=== PATIENT | male | born 1985 | race Caucasian/White ===

== ENCOUNTER 2018-12-07 17:13 | Observation (INO) ==
--- NOTE | 2018-12-07 18:12 | XR ---
EXAM DATE: 12/07/2018 6:04 PM EST AGE/SEX: 33 years / Male INDICATIONS: Chest pain. CLINICAL DATA: This is the patient's initial encounter. Patient reports that signs and symptoms have been present for 1 day and indicates a pain score of 10/10. MEDICAL/SURGICAL HISTORY: None. None. COMPARISON: [facility] [place], CHEST SINGLE AP, 04/09/2018. . FINDINGS: A single AP view of the chest demonstrates the lungs to be symmetrically aerated without evidence of mass, infiltrate or effusion. The cardiomediastinal contours are unremarkable. Osseous structures a re intact. CONCLUSION: The lungs are clear. Electronically signed by: Constantino Reich MD Board Certified Radiologist 12/07/2018 6:11 PM EST
[2018-12-07 18:28] LABS: Baso % (Auto) 0.4 % (0.0-2.0); Eos % (Auto) 0.5 % (0.0-4.0); Hematocrit 44.1 % (39.0-51.0); Hemoglobin 14.8 gm/dL (13.0-17.0); Lymph # (Auto) 1.6 th/mm3 (1.0-4.8); Lymph % (Auto) 17.8 % (9.0-44.0); Mean Corpuscular HGB Conc 33.5 % (32.0-36.0); Mean Corpuscular Hemoglobin 28.8 pg (27.0-34.0); Mean Corpuscular Volume 86.1 fL (80.0-100.0); Mean Platelet Volume 8.6 fL (7.0-11.0); Mono # (Auto) 0.9 th/mm3 (0.0-0.9); Mono % (Auto) 10.1 % (0.0-8.0); Neut # (Auto) 6.3 th/mm3 (1.8-7.7); Neut % (Auto) 71.2 % (16.0-70.0); Platelet Count 208 th/mm3 (150-450); Red Blood Count 5.13 mil/mm3 (4.50-5.90); Red Cell Distribution Width 15.3 % (11.6-17.2); White Blood Count 8.9 th/mm3 (4.0-11.0)
[2018-12-07 18:40] LABS: Albumin 3.8 g/dL (3.4-5.0); Anion Gap 7 meq/L (5-15); Aspartate Aminotransferase 54 U/L (15-37); Blood Urea Nitrogen 12 mg/dL (7-18); Calcium 9.1 mg/dL (8.5-10.1); Carbon Dioxide 26.2 meq/L (21.0-32.0); Chloride 104 meq/L (98-107); Glomerular Filtration Rate Greater Than 89 mL/min (>89); Glucose,Random 97 mg/dL (74-106); Sodium 137 meq/L (136-145)
[2018-12-07 18:43] LABS: Alanine Aminotransferase 74 U/L (12-78); Alkaline Phosphatase 120 U/L (45-117); Total Protein 8.7 g/dL (6.4-8.2)
[2018-12-07 18:48] LABS: Potassium 4.3 meq/L (3.5-5.1)
--- NOTE | 2018-12-07 19:37 | ED ---
HPI General Chief complaint: Chest Pain Stated complaint: med clearance/DBPD Time Seen by Provider: 12/07/18 17:50 Source: patient and police Mode of arrival: ambulatory Limitations: no limitations History of Present Illness HPI narrative: 33yo M with history IVDA was brought in by police for evaluation of chest pain. Pt said he has been having sharp, midsternal chest pain for a few days. Associated with some sob and tactile fever. Also complains of left arm weakness and numbness that started 3 days ago but said has improved but still does not feel that same. Denies any n/v, abdominal pain. Related Data Home Medications Medication Instructions Recorded Confirmed No Known Home Medications 12/07/18 12/07/18 Allergies Allergy/AdvReac Type Severity Reaction Status Date / Time No Known Allergies Allergy Verified 12/07/18 17:47 Review of Systems ROS: all other systems reviewed are negative [facility] Medical History Medical History Patient denies medical problems (Acute) Surgical History Surgical History H/O hernia repair (Acute) Family History Family History Other Family history non-contributory Social History Social History Substance History: Active Abuse Second Hand Smoke Exposure: Yes Smoking Status: Current every day smoker Tobacco Type: Cigarettes How Often Do You Have a Drink Containing Alcohol: Never Hx Recent Travel: No Recent Travel in [facility] within the Last 8 Weeks: No Recent Out of Country Travel within the Last 8 Weeks: No Immunization History Tetanus Immunization: Unsure Exam Narrative Exam Narrative: GENERAL: 33yo M in moderate distress. SKIN: Multiple scars from IVDA in bilateral hands. HEAD: Atraumatic. Normocephalic. EYES: Pupils equal and round. No scleral icterus. No injection or drainage. ENT: No nasal bleeding or discharge. Mucous membranes pink and moist. NECK: Trachea midline. No JVD. CARDIOVASCULAR: HR is tachycardic in the 115-117. No murmur appreciated. RESPIRATORY: No accessory muscle use. Clear to auscultation. Breath sounds equal bilaterally. GASTROINTESTINAL: Abdomen soft, non-tender, nondistended. MUSCULOSKELETAL: No obvious deformities. No clubbing. No cyanosis. No edema. NEUROLOGICAL: Awake and alert. No obvious cranial nerve deficits. Motor grossly within normal limits in all extremities. Decreased sensation in left arm. Normal speech. PSYCHIATRIC: Appropriate mood and affect; insight and judgment normal. Course Initial Documented Vital Signs Temperature 98.2 F 12/07/18 17:44 Pulse Rate 101 H 12/07/18 17:44 Respiratory Rate 20 12/07/18 17:44 Blood Pressure 159/83 H 12/07/18 17:44 Pulse Oximetry 100 12/07/18 17:44 Last Documented Vital Signs Temperature 97.6 F 12/08/18 15:33 Pulse Rate 90 12/08/18 15:33 Respiratory Rate 18 12/08/18 15:33 Blood Pressure 135/81 12/08/18 15:33 Pulse Oximetry 100 12/08/18 15:33 Medical Decision Making MDM Narrative Medical decision making narrative: 33yo M with IVDA here with chest pain and left arm numbness and weakness. Pt still feels like his left arm is more numb compare to his right arm but it has been 3 days. Will still obtain CT brain. Pt is tachycardic in the 115s-117 on monitor and is high risk for endocarditis because of his IVDA. CTA chest ordered to r/o PE and septic emboli. Pt will need to be admitted for endocarditis work up as well as neurology evaluation of his left arm weakness and numbness. Patient was evaluated/reassessed by myself via the RMA process Lab work is unremarkable. Patient's troponin and CK are negative. CT of the chest with angio shows multiple pulmonary nodules that patient needs to have repeat imaging on in 6 months. Patient is an IV drug abuser and will need rule out endocarditis. Patient will be admitted for observation and for a echocardiogram in the morning. Patient is admitted to Dr. Hathaway Medical Screen Exam Complete: Yes Emergency Medical Condition: Yes Differential Diagnosis Differential Diagnosis: Endocarditis vs. septic emboli vs. TIA vs. ACS vs. GERD vs. PE vs. malingering Lab Data Lab results reviewed: Yes I reviewed the patient's lab results. Result diagrams: 12/08/18 08:17 12/08/18 08:17 Lab Results 12/07/18 12/07/18 12/07/18 Range/Units 17:50 17:50 20:20 WBC 8.9 (4.0-11.0) th/mm3 RBC 5.13 (4.50-5.90) mil/mm3 Hgb 14.8 (13.0-17.0) gm/dL Hct 44.1 (39.0-51.0) % MCV 86.1 (80.0-100.0) fL MCH 28.8 (27.0-34.0) pg MCHC 33.5 (32.0-36.0) % RDW 15.3 (11.6-17.2) % Plt Count 208 (150-450) th/mm3 MPV 8.6 (7.0-11.0) fL Neut % (Auto) 71.2 H (16.0-70.0) % Lymph % (Auto) 17.8 (9.0-44.0) % [place] % (Auto) 10.1 H (0.0-8.0) % Eos % (Auto) 0.5 (0.0-4.0) % Baso % (Auto) 0.4 (0.0-2.0) % Neut # (Auto) 6.3 (1.8-7.7) th/mm3 Lymph # (Auto) 1.6 (1.0-4.8) th/mm3 [place] # (Auto) 0.9 (0.0-0.9) th/mm3 Eos # (Auto) 0.0 (0.0-0.4) th/mm3 Baso # (Auto) 0.0 (0.0-0.2) th/mm3 WBC Differential . Differential Comment Auto diff final PT 10.1 (9.8-11.6) sec INR 1.0 Ratio APTT 31.5 (23.4-31.7) sec Sodium 137 (136-145) meq/L Potassium 4.3 (3.5-5.1) meq/L Chloride 104 (98-107) meq/L Carbon Dioxide 26.2 (21.0-32.0) meq/L Anion Gap 7 (5-15) meq/L BUN 12 (7-18) mg/dL Creatinine 0.78 (0.60-1.30) mg/dL Estimated GFR Greater than 89 (>89) mL/min Random Glucose 97 (74-106) mg/dL Lactic Acid (0.4-2.0) mmol/L Calcium 9.1 (8.5-10.1) mg/dL Total Bilirubin 0.5 (0.2-1.0) mg/dL AST 54 H (15-37) U/L ALT 74 (12-78) U/L Alkaline Phosphatase 120 H (45-117) U/L Total Creatine Kinase (39-308) U/L Troponin I Less than 0.02 L (0.02-0.05) ng/mL Total Protein 8.7 H (6.4-8.2) g/dL Albumin 3.8 (3.4-5.0) g/dL 12/07/18 12/08/18 12/08/18 Range/Units 20:20 01:15 08:17 WBC 6.9 (4.0-11.0) th/mm3 RBC 4.44 L (4.50-5.90) mil/mm3 Hgb 12.5 L D (13.0-17.0) gm/dL Hct 37.2 L (39.0-51.0) % MCV 83.8 (80.0-100.0) fL MCH 28.2 (27.0-34.0) pg MCHC 33.7 (32.0-36.0) % RDW 14.6 (11.6-17.2) % Plt Count 221 (150-450) th/mm3 MPV 7.8 (7.0-11.0) fL Neut % (Auto) 65.9 (16.0-70.0) % Lymph % (Auto) 21.5 (9.0-44.0) % [place] % (Auto) 10.8 H (0.0-8.0) % Eos % (Auto) 1.3 (0.0-4.0) % Baso % (Auto) 0.5 (0.0-2.0) % Neut # (Auto) 4.6 (1.8-7.7) th/mm3 Lymph # (Auto) 1.5 (1.0-4.8) th/mm3 [place] # (Auto) 0.7 (0.0-0.9) th/mm3 Eos # (Auto) 0.1 (0.0-0.4) th/mm3 Baso # (Auto) 0.0 (0.0-0.2) th/mm3 WBC Differential . Differential Comment Auto diff final PT (9.8-11.6) sec INR Ratio APTT (23.4-31.7) sec Sodium (136-145) meq/L Potassium (3.5-5.1) meq/L Chloride (98-107) meq/L Carbon Dioxide (21.0-32.0) meq/L Anion Gap (5-15) meq/L BUN (7-18) mg/dL Creatinine (0.60-1.30) mg/dL Estimated GFR (>89) mL/min Random Glucose (74-106) mg/dL Lactic Acid 1.0 (0.4-2.0) mmol/L Calcium (8.5-10.1) mg/dL Total Bilirubin (0.2-1.0) mg/dL AST (15-37) U/L ALT (12-78) U/L Alkaline Phosphatase (45-117) U/L Total Creatine Kinase 36 L (39-308) U/L Troponin I Less than 0.02 L (0.02-0.05) ng/mL Total Protein (6.4-8.2) g/dL Albumin (3.4-5.0) g/dL 12/08/18 12/08/18 Range/Units 08:17 12:37 WBC (4.0-11.0) th/mm3 RBC (4.50-5.90) mil/mm3 Hgb (13.0-17.0) gm/dL Hct (39.0-51.0) % MCV (80.0-100.0) fL MCH (27.0-34.0) pg MCHC (32.0-36.0) % RDW (11.6-17.2) % Plt Count (150-450) th/mm3 MPV (7.0-11.0) fL Neut % (Auto) (16.0-70.0) % Lymph % (Auto) (9.0-44.0) % [place] % (Auto) (0.0-8.0) % Eos % (Auto) (0.0-4.0) % Baso % (Auto) (0.0-2.0) % Neut # (Auto) (1.8-7.7) th/mm3 Lymph # (Auto) (1.0-4.8) th/mm3 [place] # (Auto) (0.0-0.9) th/mm3 Eos # (Auto) (0.0-0.4) th/mm3 Baso # (Auto) (0.0-0.2) th/mm3 WBC Differential Differential Comment PT (9.8-11.6) sec INR Ratio APTT (23.4-31.7) sec Sodium 139 (136-145) meq/L Potassium 3.9 (3.5-5.1) meq/L Chloride 106 (98-107) meq/L Carbon Dioxide 27.0 (21.0-32.0) meq/L Anion Gap 6 (5-15) meq/L BUN 14 (7-18) mg/dL Creatinine 0.78 (0.60-1.30) mg/dL Estimated GFR Greater than 89 (>89) mL/min Random Glucose 80 (74-106) mg/dL Lactic Acid (0.4-2.0) mmol/L Calcium 8.8 (8.5-10.1) mg/dL Total Bilirubin (0.2-1.0) mg/dL AST (15-37) U/L ALT (12-78) U/L Alkaline Phosphatase (45-117) U/L Total Creatine Kinase 38 L (39-308) U/L Troponin I 0.04 Less than 0.02 L (0.02-0.05) ng/mL Total Protein (6.4-8.2) g/dL Albumin (3.4-5.0) g/dL Imaging Data Attestation: I personally reviewed and interpreted this imaging study as follows : Radiologist's impression: Chest X-Ray 12/07/18 17:49 CONCLUSION: The lungs are clear. Chest CTA 12/07/18 19:28 CONCLUSION: 1. No acute intrathoracic abnormality. 2. 3 pulmonary nodules observed. Current Fleischner guidelines suggest a repeat CT of the thorax in 6 months. 3. Splenomegaly. Head CT 12/07/18 19:28 CONCLUSION: 1. No acute intracranial abnormality. 2. Chronic paranasal sinus disease. . ECG Data EKG Prior to Arrival: No Attestation: I personally reviewed and interpreted this ECG as follows: Interpretation: Sinus tachycardia at 102bpm. Normal axis. No significant ST elevation or depression. Discharge Plan Discharge Disposition Patient Disposition: ED Admit(ED Internal Use Only) Discharge Condition Condition: Stable Discharge Order Discharge Orders: ED Use Only Admit Order (Routine); Ordered 12/07/18 Ordered By: Yesenia Steele Discharge Details Diagnosis: Atypical chest pain, Intravenous drug abuse, Tachycardia Physicians Team ED Provider: Stella Mccollum ED Midlevel Provider: Yesenia Steele Primary Care Provider: Primary Care Shana Farmer Attending Provider: Kiara Archer Status ED Status: Left Department Discharge Information Discharge Date/Time: 12/08/18 02:41
[2018-12-07] MEDS ORDERED: Sod Chloride 0.9% Inj 1,000 ML IV.SIG SCH (20:00)
[2018-12-07 20:44] LABS: Activated Partial Thrombo Time 31.5 sec (23.4-31.7); Prothrombin Time 10.1 sec (9.8-11.6)
--- NOTE | 2018-12-07 20:47 | CT ---
EXAM DATE: 12/07/2018 8:41 PM EST AGE/SEX: 33 years / Male INDICATIONS: Altered mental status. CLINICAL DATA: This is the patient's initial encounter. Patient reports that signs and symptoms have been present for 1 day and indicates a pain score of 0/10. MEDICAL/SURGICAL HISTORY: None. None. RADIATION DOSE: 60.03 CTDI (mGy) ;Tabletop exam COMPARISON: No prior exams available for comparison. TECHNIQUE: CT of the head without contrast. Using automated exposure control and adjustment of the mA and/or kV according to patient size, radiation dose was kept as low as reasonably achievable to ob tain optimal diagnostic quality images. DICOM format image data is available electronically for revi ew and comparison. FINDINGS: Cerebrum: The ventricles are normal for age. No evidence of midline shift, mass lesion, hemorrhage or acute infarction. No extraaxial fluid collections are seen. Posterior Fossa: The cerebellum and brainstem are intact. The 4th ventricle is midline. The cerebe llopontine angle is unremarkable. Extracranial: The visualized portion of the orbits is intact. Mucosal thickening seen involving the maxillary sinuses and ethmoid air cells bilaterally. Skull: The calvaria is intact. No evidence of skull fracture. CONCLUSION: 1. No acute intracranial abnormality. 2. Chronic paranasal sinus disease. . Electronically signed by: Constantino Reich MD Board Certified Radiologist 12/07/2018 8:45 PM EST
--- NOTE | 2018-12-07 20:58 | CT ---
EXAM DATE: 12/07/2018 8:49 PM EST AGE/SEX: 33 years / Male INDICATIONS: Chest pain. CLINICAL DATA: This is the patient's initial encounter. Patient reports that signs and symptoms have been present for 1 day and indicates a pain score of 7/10. MEDICAL/SURGICAL HISTORY: None. None. RADIATION DOSE: 12.72 CTDI (mGy) COMPARISON: No prior exams available for comparison. TECHNIQUE: Volumetric scanning was performed using a multi-row detector CT scanner during bolus infu sil of 70 ml Omnipaque 350 (iohexol) nonionic water-soluble contrast as a single exam dose. The prema a was post processed with a variety of visualization algorithms including full volume maximum intensi ty projection and sliding thin slab reformation. Using automated exposure control and adjustment of t he mA and/or kV according to patient size, radiation dose was kept as low as reasonably achievable to obtain optimal diagnostic quality images. DICOM format image data is available electronically for r eview and comparison. FINDINGS: Pulmonary Arteries: No filling defects are seen in the pulmonary arteries out to the subsegmental ve ssels. The left and right pulmonary arteries are normal in diameter. Lung: No infiltrates seen. 3 pulmonary nodules observed. Within the lateral basilar segment of the r ight lower lobe there is a 7 mm nodule and 5 mm nodule. Within the superior segment left lower lobe t here is a 7 mm nodule. Effusion: None. Mediastinum: No evidence of mediastinal or hilar adenopathy. Other: The axilla is unremarkable. Mild splenomegaly. CONCLUSION: 1. No acute intrathoracic abnormality. 2. 3 pulmonary nodules observed. Current Fleischner guidelines suggest a repeat CT of the thorax in 6 months. 3. Splenomegaly. Electronically signed by: Constantino Reich MD Board Certified Radiologist 12/07/2018 8:57 PM EST
[2018-12-07] MEDS ORDERED: Acetaminophen 325 MG Tablet PO PRN (23:31)
--- NOTE | 2018-12-07 23:33 | P.HPIM ---
History of Present Illness Service: [place] Primary Care Physician: No Primary Care Physician Chief Complaint: chest pain History of Present Illness: 33-year-old male with no medical history who is currently a daily IV drug user was brought in by police because as he was getting arrested he complained of chest pain. He states for the last 2 days he has been experiencing pressure-like chest pain that radiates down his left arm,6 /10, with no associated symptoms. He also states he has been having on and off fever and chills but has not taken his temperature at home. He is currently homeless. States he uses IV drugs daily and last use was this morning. He denies any shortness of breath, abdominal pain, headaches, dizziness or dysuria. Review of Systems Review of Systems: all other systems reviewed are negative [facility] Medical History Medical History Patient denies medical problems (Acute) Surgical History Surgical History H/O hernia repair (Acute) Family History Family History Other Family history non-contributory Social History Social History Substance History: Active Abuse Second Hand Smoke Exposure: Yes Smoking Status: Current every day smoker Tobacco Type: Cigarettes How Often Do You Have a Drink Containing Alcohol: Never Hx Recent Travel: No Recent Travel in [facility] within the Last 8 Weeks: No Recent Out of Country Travel within the Last 8 Weeks: No Immunization History Tetanus Immunization: Unsure Medications and Allergies Allergies Allergy/AdvReac Type Severity Reaction Status Date / Time No Known Allergies Allergy Verified 12/07/18 17:47 Home Medications Medication Instructions Recorded Confirmed Type No Known Home Medications 12/07/18 12/07/18 History Active Medications: Active Medications Sodium Chloride (Ns Flush) 2 ml IV.FLUSH UNSCH PRN PRN Reason: FLUSH AFTER USING IV ACCESS Physical Exam Vital signs: Vital Signs 12/07/18 17:44 12/07/18 17:47 12/07/18 20:18 Temperature 98.2 F 98.2 F 98.2 F Pulse Rate 101 H 108 H 97 H Respiratory Rate 20 20 20 Blood Pressure 159/83 H 139/65 136/72 Pulse Oximetry 100 98 98 Intake & Output 12/07/18 12/07/18 12/08/18 06:59 18:59 06:59 Intake Total 1000 / 1000 Balance 1000 / 1000 Weight 85.729 kg Intake: IV 1000 / 1000 NS Inj 1,000 ML @ 1000 mls/hr 1000 / 1000 IV.SIG BOLUS PATSY Rx#:[id number] Narrative: GENERAL: Well-nourished patient in no acute distress SKIN: Warm and dry. Multiple scabbed lesions on upper extremity EYES: No scleral icterus. No injection or drainage. CARDIOVASCULAR: Regular rate and rhythm without murmurs, gallops, or rubs. RESPIRATORY: Breath sounds equal bilaterally. No accessory muscle use. GASTROINTESTINAL: Abdomen soft, non-tender, nondistended. MUSCULOSKELETAL: No cyanosis, or edema. Results Labs CBC & Chem 7: 12/07/18 17:50 12/07/18 17:50 Imaging Impressions Chest X-Ray 12/07/18 17:49 CONCLUSION: The lungs are clear. Chest CTA 12/07/18 19:28 CONCLUSION: 1. No acute intrathoracic abnormality. 2. 3 pulmonary nodules observed. Current Fleischner guidelines suggest a repeat CT of the thorax in 6 months. 3. Splenomegaly. Head CT 12/07/18 19:28 CONCLUSION: 1. No acute intracranial abnormality. 2. Chronic paranasal sinus disease. . Caprini VTE Risk Assessment Caprini VTE Risk Assessment: No/Low Risk (score <= 1) Caprini Risk Assessment Model: Point Value = 1 Point Value = 2 Point Value = 3 Point Value = 5 Age 41-60 Minor surgery BMI > 25 kg/m2 Swollen legs Varicose veins or History of unexplained or recurrent spontaneous Oral contraceptives or hormone replacement Sepsis (< 1 month) Serious lung disease, including pneumonia (< 1 month) Abnormal pulmonary function Acute myocardial infarction Congestive heart failure (< 1 month) History of inflammatory bowel disease Medical patient at bed rest Age 61-74 Arthroscopic surgery Major open surgery (> 45 min) Laparoscopic surgery (> 45 min) Malignancy Confined to bed (> 72 hours) Immobilizing plaster cast Central venous access Age >= 75 History of VTE Family history of VTE Factor V Leiden Prothrombin [id number] Lupus anticoagulant Anticardiolipin antibodies Elevated serum homocysteine Heparin-induced thrombocytopenia Other congenital or acquired thrombophilia Stroke (< 1 month) Elective arthroplasty Hip, pelvis, or leg fracture Acute spinal cord injury (< 1 month) Prophylaxis Regimen: Total Risk Factor Score Risk Level Prophylaxis Regimen 0-1 Low Early ambulation 2 Moderate Order ONE of the following: *Sequential Compression Device (SCD) *Heparin 5000 units SQ BID 3-4 Higher Order ONE of the following medications: *Heparin 5000 units SQ TID *Enoxaparin/Lovenox 40 mg SQ daily (WT < 150 kg, CrCl > 30 mL/min) *Enoxaparin/Lovenox 30 mg SQ daily (WT < 150 kg, CrCl > 10-29 mL/min) *Enoxaparin/Lovenox 30 mg SQ BID (WT < 150 kg, CrCl > 30 mL/min) AND/OR *Sequential Compression Device (SCD) 5 or more Highest Order ONE of the following medications: *Heparin 5000 units SQ TID (Preferred with Epidurals) *Enoxaparin/Lovenox 40 mg SQ daily (WT < 150 kg, CrCl > 30 mL/min) *Enoxaparin/Lovenox 30 mg SQ daily (WT < 150 kg, CrCl > 10-29 mL/min) *Enoxaparin/Lovenox 30 mg SQ BID (WT < 150 kg, CrCl > 30 mL/min) AND *Sequential Compression Device (SCD) Assessment and Plan Plan 33-year-old male with no medical history who is currently a daily IV drug user was brought in by police because as he was getting arrested he complained of chest pain. Chest pain, atypical, possible endocarditis Troponin first set negative EKG shows sinus rhythm -Serial troponin and EKGs -2D echo ordered -Blood cultures pending -We will hold off on antibiotics as there is no fever or leukocytosis IV drug abuse -Encouraged to quit DVT prophylaxis: SCDs The exam, history, and the medical decision-making described in the above note were completed with the assistance of the mid-level provider. I reviewed and agree with the findings presented. I attest that I had a [id number] encounter with the patient on the same day, and personally performed and documented my assessment and findings in the medical record.
[2018-12-08 01:53] LABS: Creatine Kinase 36 U/L (39-308)
[2018-12-08 02:41] VITALS: O2SAT 100
[2018-12-08 08:58] LABS: Baso % (Auto) 0.5 % (0.0-2.0); Eos # (Auto) 0.1 th/mm3 (0.0-0.4); Eos % (Auto) 1.3 % (0.0-4.0); Hematocrit 37.2 % (39.0-51.0); Hemoglobin 12.5 gm/dL (13.0-17.0); Lymph # (Auto) 1.5 th/mm3 (1.0-4.8); Lymph % (Auto) 21.5 % (9.0-44.0); Mean Corpuscular HGB Conc 33.7 % (32.0-36.0); Mean Corpuscular Hemoglobin 28.2 pg (27.0-34.0); Mean Corpuscular Volume 83.8 fL (80.0-100.0); Mean Platelet Volume 7.8 fL (7.0-11.0); Mono # (Auto) 0.7 th/mm3 (0.0-0.9); Mono % (Auto) 10.8 % (0.0-8.0); Neut # (Auto) 4.6 th/mm3 (1.8-7.7); Neut % (Auto) 65.9 % (16.0-70.0); Platelet Count 221 th/mm3 (150-450); Red Blood Count 4.44 mil/mm3 (4.50-5.90); Red Cell Distribution Width 14.6 % (11.6-17.2); White Blood Count 6.9 th/mm3 (4.0-11.0)
[2018-12-08 09:42] LABS: Anion Gap 6 meq/L (5-15); Blood Urea Nitrogen 14 mg/dL (7-18); Calcium 8.8 mg/dL (8.5-10.1); Chloride 106 meq/L (98-107); Glomerular Filtration Rate Greater Than 89 mL/min (>89); Glucose,Random 80 mg/dL (74-106); Potassium 3.9 meq/L (3.5-5.1); Sodium 139 meq/L (136-145)
[2018-12-08 09:48] LABS: Troponin I 0.04 ng/mL (0.02-0.05)
[2018-12-08 09:49] LABS: Creatine Kinase 38 U/L (39-308)
--- NOTE | 2018-12-08 10:23 | ECHRPT ---
Indication: POSS SEPSIS, ENDOCARDITIS CONCLUSIONS Normal left ventricular size. Mild concentric left ventricular hypertrophy. The left ventricular systolic function is low normal with an estimated ejection fraction in the rang e of 50- 55%. Trace mitral valve regurgitation. There is trace tricuspid valve regurgitation. BP: / HR: Rhythm: Sinus MEASUREMENTS (Male / Female) Normal Values Technical Quality:Fair 2D ECHO LV Diastolic Diameter PLAX 4.4 cm 4.2 - 5.9 / 3.9 - 5.3 cm LV Systolic Diameter PLAX 3.2 cm IVS Diastolic Thickness 1.2 cm 0.6 - 1.0 / 0.6 - 0.9 cm LVPW Diastolic Thickness 1.2 cm 0.6 - 1.0 / 0.6 - 0.9 cm LV Relative Wall Thickness 0.6 RV Internal Dim ED PLAX 3.3 cm LVOT Diameter 2.5 cm Aortic Root Diameter 3.5 cm LA Systolic Diameter LX 3.0 cm 3.0 - 4.0 / 2.7 - 3.8 cm M-MODE AV Cusp Separation MM 2.4 cm DOPPLER LVOT Peak Velocity 134.0 cm/s LVOT Peak Gradient 7.2 mmHg LVOT Velocity Time Integral 19.9 cm Mitral E Point Velocity 70.6 cm/s Mitral A Point Velocity 55.8 cm/s Mitral E to A Ratio 1.3 LV E' Lateral Velocity 16.3 cm/s Mitral E to LV E' Lateral Ratio 4.3 LV E' Septal Velocity 11.6 cm/s Mitral E to LV E' Septal Ratio 6.1 PV Peak Velocity 111.0 cm/s PV Peak Gradient 4.9 mmHg FINDINGS LEFT VENTRICLE Normal left ventricular size. Mild concentric left ventricular hypertrophy. The left ventricular systolic function is low normal with an estimated ejection fraction in the rang e of 50- 55%. RIGHT VENTRICLE Normal right ventricular size and systolic function. LEFT ATRIUM The left atrial size is normal. RIGHT ATRIUM The right atrial size is normal. ATRIAL SEPTUM No atrial level shunt is demonstrated by color flow Doppler interrogation. AORTA The aortic root and proximal ascending aorta are normal in size on limited imaging. MITRAL VALVE Trace mitral valve regurgitation. AORTIC VALVE Trileaflet aortic valve. No aortic valve stenosis or regurgitation. TRICUSPID VALVE There is trace tricuspid valve regurgitation. PULMONARY VALVE The pulmonary valve is not well visualized. VESSELS The inferior vena cava was not well visualized. PERICARDIUM No pericardial effusion. Yasmani Ohara MD, FACC (Electronically Signed) Final Date:08 December 2018 10:22
--- NOTE | 2018-12-08 11:37 | ECG ---
Date Performed: 12/07/2018 Time Performed: 17:51:57 PTAGE: 33 years EKG: SINUS TACHYCARDIA WITH SHORT CO INTERVAL ABNORMAL RHYTHM ECG Since the PREVIOUS TRACING , no significant change noted PREVIOUS TRACIN04/09/2018 19.44 DOCTOR: Navneet Gonzales Interpretating Date/Time 12/08/2018 11:34:42
--- NOTE | 2018-12-08 11:39 | P.PNIM ---
Subjective Interval history: Follow-up visit chest pain Patient seen and examined while resting in bed. Complains of midsternal chest pain with radiation into his back. No shortness of breath, palpitations, lower extremity edema/pain. Patient also complains of signs and symptoms of withdrawal. Physical Exam Vital signs: Vital Signs 12/07/18 17:44 12/07/18 17:47 12/07/18 20:18 Temperature 98.2 F 98.2 F 98.2 F Pulse Rate 101 H 108 H 97 H Respiratory Rate 20 20 20 Blood Pressure 159/83 H 139/65 136/72 Pulse Oximetry 100 98 98 12/08/18 02:39 12/08/18 02:53 12/08/18 04:00 Temperature 98 F 97.7 F Pulse Rate 84 89 84 Respiratory Rate 16 16 Blood Pressure 129/84 131/60 Pulse Oximetry 100 100 12/08/18 07:46 Temperature 97.9 F Pulse Rate 87 Respiratory Rate 16 Blood Pressure 152/97 H Pulse Oximetry 100 Intake & Output 12/07/18 12/08/18 12/08/18 18:59 06:59 18:59 Intake Total 1000 / 1000 Balance 1000 / 1000 Weight 85.729 kg Intake: IV 1000 / 1000 NS Inj 1,000 ML @ 1000 mls/hr 1000 / 1000 IV.SIG BOLUS [facility] Rx#:[id number] Narrative: GENERAL: Well-nourished patient in no acute distress SKIN: Warm and dry. Multiple scabbed lesions on upper extremity EYES: No scleral icterus. No injection or drainage. CARDIOVASCULAR: Regular rate and rhythm without murmurs, gallops, or rubs. RESPIRATORY: Breath sounds equal bilaterally. No accessory muscle use. GASTROINTESTINAL: Abdomen soft, non-tender, nondistended. MUSCULOSKELETAL: No cyanosis, or edema. Results Labs CBC & Chem 7: 12/08/18 08:17 12/08/18 08:17 Labs: Microbiology 12/07/18 19:31 Blood - Peripheral Aerobic Blood Culture - Preliminary No growth in 1 day 12/07/18 19:31 Blood - Peripheral Anaerobic Blood Culture - Preliminary No growth in 1 day 12/07/18 20:20 Blood - Peripheral Aerobic Blood Culture - Preliminary No growth in 1 day 12/07/18 20:20 Blood - Peripheral Anaerobic Blood Culture - Preliminary No growth in 1 day Imaging Imaging: Impressions Chest X-Ray 12/07/18 17:49 CONCLUSION: The lungs are clear. Chest CTA 12/07/18 19:28 CONCLUSION: 1. No acute intrathoracic abnormality. 2. 3 pulmonary nodules observed. Current Fleischner guidelines suggest a repeat CT of the thorax in 6 months. 3. Splenomegaly. Head CT 12/07/18 19:28 CONCLUSION: 1. No acute intracranial abnormality. 2. Chronic paranasal sinus disease. . Assessment and Plan Plan 33-year-old male with no medical history who is currently a daily IV drug user was brought in by police because as he was getting arrested he complained of chest pain. Chest pain, atypical, possible endocarditis -Troponin < 0.02 x 2, 0.04 & < 0.02 respectively -EKG shows sinus rhythm -2D echo normal left ventricular size, mild concentric left ventricular hypertrophy, LV systolic function low normal with estimated EF 50-55% -Blood cultures no growth after 1 day -We will hold off on antibiotics as there is no fever or leukocytosis -NPO after midnight -stress test in am as patient continues to complain of chest pain with radiation into his back IV drug abuse -Encouraged to quit -monitor for s/s of withdrawal -Clonidine PRN MDM: self Code: Full GI ppx: not indicated DVT prophylaxis: SCDs Discussed with: RN, patient, supervising MD Dispo: home Progress Note: Quality VTE Deep Vein Thrombosis/Pulmonary Embolism Present on Admission: No
[2018-12-08] MEDS ORDERED: Morphine Sulfate Inj 2 MG/ML Vial IV.PUSH ONE (12:19)
[2018-12-08] MEDS ORDERED: Methocarbamol 500 MG Tablet PO SCH (14:00)
[2018-12-08 15:34] VITALS: BP 135/81; PULSE 90; RESP 18; TEMP 97.6
--- NOTE | 2018-12-09 14:49 | ECG ---
Date Performed: 12/08/2018 Time Performed: 12:41:26 PTAGE: 33 years EKG: Sinus rhythm BORDERLINE RIGHT AXIS DEVIATION TALL T-WAVES, SUGGESTS HYPERKALEMIA ABNORMAL ECG Since the PREVIOUS TRACING , no significant change noted PREVIOUS TRACIN12/07/2018 17.51 DOCTOR: Selin Richardson Interpretating Date/Time 12/09/2018 14:42:29
== END 2018-12-08 16:56 | disposition left against medical advice (07) ==
LOC: NEPD 17:13 → NEDA 17:13 → NEPHCDU 12-08 01:53
PROVIDERS: ADMIT Hospitalist; ATTEND Hospitalist
DX: F19.10 Other psychoactive substance abuse, uncomplicated; Z59.0 Homelessness; R07.89 Other chest pain; I08.1 Rheumatic disorders of both mitral and tricuspid valves; R91.8 Other nonspecific abnormal finding of lung field; R16.1 Splenomegaly, not elsewhere classified; F17.210 Nicotine dependence, cigarettes, uncomplicated
CPT/HCPCS: 70450; 71010; 71045; 71275; 80048; 80053; 82550; 83605; 84484; 85025; 85610; 85730; 87040; 90761; 93005; 93306; 96361; 96374; 99285; G0378; J2270; J7030; Q9967